=== PATIENT | male | born 2000 | race Caucasian/White ===

== ENCOUNTER 2019-04-24 23:33 | Emergency (ER) | payer OTHER ==
[2019-04-25] MEDS ORDERED: LIDOCAINE 1%/EPINEPHRINE INJ 20 ML VIAL INJ ONE (01:42)
--- NOTE | 2019-04-25 01:45 | ER Document Report ---
ED General - General Chief Complaint: Abscess Stated Complaint: ABSCESS Time Seen by Provider: 04/25/19 01:38 Notes: Patient is a pleasant 18-year-old male who presents with complaints of a spinal abscess. He says he first noticed it just a week ago. He was in [place] and had it incised and drained. He was placed on antibiotics which he still taking. He did have some packing packing since come out. Abscess reclosed and now he feels that it is enlarging again. No fevers. No vomiting. No other complaints at this time. Patient otherwise feels well. He is otherwise healthy. TRAVEL OUTSIDE OF THE [place] IN LAST 30 DAYS: No - Related Data Allergies/Adverse Reactions: No Known Allergies Allergy (Unverified 04/24/19 23:36) Past Medical History - Social History Smoking Status: Never Smoker Frequency of alcohol use: None Drug Abuse: None Family History: Reviewed & Not Pertinent Review of Systems - Review of Systems Notes: My Normal Review Basic REVIEW OF SYSTEMS: CONSTITUTIONAL : Denies fever, chills, or sweats. Denies recent illness. EENT: Denies eye, ear, throat, or mouth pain or symptoms. Denies nasal or sinus congestion. RESPIRATORY: Denies cough, cold, or chest congestion. Denies shortness of breath, difficulty breathing, or wheezing. GASTROINTESTINAL: Denies abdominal pain. Denies nausea, vomiting, or diarrhea. GENITOURINARY: Denies difficulty urinating, painful urination, burning, frequency, or blood in urine. MUSCULOSKELETAL: Denies neck or back pain or joint pain or swelling. SKIN: Patient has a localized swelling over the pilonidal region with pain. NEUROLOGICAL: Denies altered mental status or loss of consciousness. Denies headache. Denies weakness or paralysis or loss of use of either side. Denies problems with gait or speech. Denies sensory or motor loss. ALL OTHER SYSTEMS REVIEWED AND NEGATIVE. Physical Exam - Vital signs Vitals: Temp Pulse Resp BP Pulse Ox 98.1 F 75 18 143/63 H 98 04/24/19 23:38 04/24/19 23:38 04/24/19 23:38 04/24/19 23:38 04/24/19 23:38 - Notes Notes: General Appearance: Well nourished, alert, cooperative, no acute distress, no obvious discomfort. Vitals: reviewed, See vital signs table. Extremities good pulses in all extremities, no swelling or tenderness in the extremities, no edema. Skin: Small area of redness with some induration in the pilonidal region at the superior gluteal cleft. Erythema is localized to the area of induration. Neuro: speech clear, oriented x 3, normal affect, responds appropriately to questions. Course - Re-evaluation Re-evalutation: 04/25/19 02:16 Abscess was incised and drained and then flushed with saline and packed with iodoform gauze. Patient tolerated procedure well. Patient already on antibiotics and says he still has several days of antibiotic left. Encourage patient to continue take antibiotics as prescribed. Encourage to return to ER if he has spreading redness, increasing swelling, fevers, or feels that the abscess is returning. Patient agrees with plan will be discharged home. Dictation of this chart was performed using voice recognition software; therefore, there may be some unintended grammatical errors. - Vital Signs Vital signs: Temp Pulse Resp BP Pulse Ox 98.1 F 75 18 143/63 H 98 04/24/19 23:38 04/24/19 23:38 04/24/19 23:38 04/24/19 23:38 04/24/19 23:38 Procedures - Incision and Drainage pilonidal Type: Simple Blade size: 11 I&D procedure: Betadine prep applied Incision Method: Incision made by scalpel Amount/type of drainage: 3mls of purulent drainage Notes: 04/25/19 02:16 Abscess incised and drained. The wound flushed with 20 mL's of saline. Wound then packed with iodoform gauze and covered with Xeroform dressing. Discharge - Discharge Clinical Impression: Pilonidal abscess Condition: Good Disposition: HOME, SELF-CARE Additional Instructions: Please continue take your antibiotics as prescribed. We did place a small in the packing in the void. This is to keep it open so it will continue to drain as it heals from the inside. Packing should fall out in the next 2 to 3 days. If it is still there after 3 days and you can remove it or pull it out yourself. If you do not feel comfortable doing this you he can return to the ER and we are happy to do it for you. Please return to ER immediately if you have any spreading redness, increasing swelling, fevers or feel that the abscess is returning. Forms: Return to Work
[2019-04-25 03:03] VITALS: BP 125/82
== END 2019-04-25 03:03 | disposition home or self-care (01) ==
LOC: ER 23:33
DX: L05.01 Pilonidal cyst with abscess (principal)
CPT/HCPCS: 99283; 10080; A6266